=== PATIENT | male | born 1955 | race Two or more races ===

== ENCOUNTER 2016-04-14 05:13 | Inpatient (IN) | payer OTHER ==
[~2016-04-14] VITALS: Ht 165.1 cm; Wt 77.1 kg
[2016-04-14] VITALS (8 sets, daily range): BP systolic 98–147; BP diastolic 68–92
[2016-04-14] MEDS ORDERED: KETOROLAC TROMETHAMINE INJ 30 MG/ML VIAL ONE (06:03)
[2016-04-14] MEDS ORDERED: BACITRACIN 50000 UNITS/VIAL ONE (06:04)
[2016-04-14] MEDS ORDERED: BUPIVACAINE MPF 0.5% W/EPI INJ 30 ML VIAL ONE (06:04)
[2016-04-14] MEDS ORDERED: ROCURONIUM BROMIDE 50 MG/5 ML ONE (06:16)
[2016-04-14] MEDS ORDERED: MIDAZOLAM HCL 2 MG/2ML VIAL ONE (06:17)
[2016-04-14] MEDS ORDERED: FENTANYL PF 250MCG/5ML AMPUL ONE (06:17)
[2016-04-14] MEDS ORDERED: BUPIVACAINE 0.25% 75 MG/30 ML VIAL ONE (06:18)
[2016-04-14] MEDS ORDERED: CLINDAMYCIN 900 MG/6 ML VIAL ONE (07:09)
[2016-04-14] MEDS ORDERED: TRANEXAMIC ACID 3,000 MG in SODIUM CHLORIDE IRRIG SOLUTION 70 ML IR ONE (07:30)
[2016-04-14] MEDS ORDERED: IV LR 1000 ML 1,000 ML ONE (08:42)
[2016-04-14] MEDS ORDERED: NEEDLELESS EST SET LARGE BORE 1 EA INFUS.SET MC ONE (08:43)
[2016-04-14] MEDS ORDERED: IV SET PRIMARY 1 EA INFUS.SET MC ONE (08:43)
[2016-04-14] MEDS ORDERED: HYDROMORPHONE 1 MG/1 ML DISP.SYRIN ONE (08:47)
[2016-04-14] MEDS ORDERED: FENTANYL PF 100MCG/2ML AMPUL ONE (08:59)
[2016-04-14] MEDS ORDERED: IV SET PRIMARY PUMP SET 1 EA INFUS.SET MC ONE (09:48)
[2016-04-14] MEDS ORDERED: TYLENOL 650 MG TABLET PO PRN (10:00)
[2016-04-14] MEDS ORDERED: COLACE 250 MG CAPSULE PO PRN (10:00)
[2016-04-14] MEDS ORDERED: AMBIEN 5 MG TABLET PO PRN (10:00)
[2016-04-14] MEDS ORDERED: HYDROCODONE/APAP 5/325MG 1 EACH TABLET PO PRN (10:00)
[2016-04-14] MEDS ORDERED: SENOKOT 8.6 MG TABLET PO PRN (10:00)
[2016-04-14] MEDS ORDERED: DULCOLAX 10 MG/SUPP.RECT RC PRN (10:00)
[2016-04-14] MEDS ORDERED: ZOFRAN 4mg/2ML IV PRN (10:00)
[2016-04-14] MEDS ORDERED: NALOXONE HCL 0.4 MG/ML AMPUL IV PRN (10:30)
[2016-04-14] MEDS ORDERED: LORAZEPAM 0.5 MG TABLET PO PRN (10:30)
[2016-04-14] MEDS ORDERED: HYDROCODONE/APAP 10/325MG 1 EA TABLET PO PRN (10:30)
[2016-04-14] MEDS ORDERED: MENTHOL/CETYLPYRD (CEPACOL) 1 LOZ LOZENGE PO PRN (10:30)
[2016-04-14] MEDS ORDERED: diphenhydrAMINE HCL 25 MG CAPSULE PO PRN (10:30)
[2016-04-14] MEDS ORDERED: MAG HYDROX/AL HYDROX/SIMETH 30 ML UDC PO PRN (10:30)
[2016-04-14] MEDS ORDERED: MAGNESIUM HYDROXIDE 30 ML UDC PO PRN (10:30)
[2016-04-14] MEDS ORDERED: oxyCODONE IR immediate release 5 MG CAPSULE PO PRN (10:30)
[2016-04-14] MEDS ORDERED: HYDROMORPHONE 1 MG/1 ML DISP.SYRIN SQ PRN (10:30)
[2016-04-14] MEDS ORDERED: HYDROMORPHONE MDV 30 MG in IV NS 0.9% 15 ML, PCA TOTAL VOLUME 1 BAG IV PRN ×3 (11:00)
[2016-04-14] MEDS: IV D5/0.45 NACL 1,000 ML IV PRN (11:10)
[2016-04-14] MEDS ORDERED: SECONDARY IV SET 1 EA INFUS.SET MC ONE (11:24)
[2016-04-14] MEDS ORDERED: LEVOFLOXACIN 500 MG /D5W 100ML 500 MG in PREMIX 1 EA IV ONE (12:00)
[2016-04-14] MEDS ORDERED: SET PCA INFUSE SET 1 EA INFUS.SET MC ONE (12:36)
[2016-04-14] MEDS: CLINDAMYCIN 600 MG in IV D5W 50 ML IV SCH ×2 (12:51→18:06)
[2016-04-14] MEDS: DOCUSATE SODIUM 100 MG CAPSULE PO SCH (16:20)
[2016-04-14] MEDS ORDERED: P-EPHED SUL/LORATADINE (24H) 1 TAB.SR.24H PO SCH (17:00)
[2016-04-14] MEDS ORDERED: ACETAMINOPHEN W/ CODEINE#3 1 EA TABLET PO PRN (21:00)
[2016-04-14] MEDS ORDERED: PANTOPRAZOLE 40 MG TABLET.DR PO SCH (22:00)
[2016-04-15] MEDS: CLINDAMYCIN 600 MG in IV D5W 50 ML IV SCH (00:43)
[2016-04-15] MEDS: IV D5/0.45 NACL 1,000 ML IV PRN ×2 (00:48→09:40)
[2016-04-15] MEDS ORDERED: ACETAMINOPHEN W/ CODEINE#3 1 EA TABLET ONE (06:35)
[2016-04-15 08:00] VITALS: BP 118/81
[2016-04-15] MEDS ORDERED: ASPIRIN 325 MG TABLET PO SCH (09:00)
[2016-04-15] MEDS: DOCUSATE SODIUM 100 MG CAPSULE PO SCH (09:41)
[2016-04-15 13:35] VITALS: BP 118/81
== END 2016-04-15 13:58 | disposition home or self-care (01) | DRG 483 ==
LOC: DS 05:13 → MED 09:39
PROVIDERS: ADMIT Specialist
PROC: 0RRK0J6 Replacement of Left Shoulder Joint with Synthetic Substitute, Humeral Surface, Open Approach (ICD-10-PCS; principal; 2016-04-14 07:14)
PROC: 0LS40ZZ Reposition Left Upper Arm Tendon, Open Approach (ICD-10-PCS; principal; 2016-04-14 07:14)
PROC: 0LQ20ZZ Repair Left Shoulder Tendon, Open Approach (ICD-10-PCS; principal; 2016-04-14 07:14)
DX: M19.012 Primary osteoarthritis, left shoulder (principal); M75.102 Unspecified rotator cuff tear or rupture of left shoulder, not specified as traumatic; K21.9 Gastro-esophageal reflux disease without esophagitis; X58.XXXA Exposure to other specified factors, initial encounter; Y93.9 Activity, unspecified; Y92.009 Unspecified place in unspecified non-institutional (private) residence as the place of occurrence of the external cause; Y99.9 Unspecified external cause status; Z88.0 Allergy status to penicillin; Z88.5 Allergy status to narcotic agent; S43.002A Unspecified subluxation of left shoulder joint, initial encounter
CPT/HCPCS: 36415; 86850-TC; 86921-TC; 87081-TC; A4216; A4217; A4565; A6402; C1713; J1170; J1885; J1956; J2250; J2405; J3010; J3490; J7060; J7120